=== PATIENT | female | born 1985 | race Asian ===

== ENCOUNTER 2016-06-12 04:35 | Emergency (ER) | payer SELFPAY ==
[~2016-06-12] VITALS: Ht 162.6 cm; Wt 59.0 kg
[2016-06-12 04:45] VITALS: BP 120/76
[2016-06-12 06:21] LABS: Urine Bilirubin Negative (Negative); Urine Blood Negative /uL (Negative); Urine Color Yellow (Yellow); Urine Glucose Normal (Normal); Urine Ketone Negative (Negative); Urine Mucus FEW (None Seen); Urine Nitrite Negative (Negative); Urine RBC 9 /hpf (0 - 4); Urine Squamous Epithelial Cell FEW /hpf (<5); Urine Urobilinogen Normal (Negative); Urine pH 6.5 (5.0-8.0)
== END 2016-06-12 08:04 | disposition home or self-care (01) ==
LOC: ER 04:35 → EDBD 04:35 → ER 08:04
DX: S62.512A Displaced fracture of proximal phalanx of left thumb, initial encounter for closed fracture (principal); V49.60XA Unspecified car occupant injured in collision with unspecified motor vehicles in traffic accident, initial encounter; Y93.89 Activity, other specified; Y92.410 Unspecified street and highway as the place of occurrence of the external cause; Y99.8 Other external cause status
CPT/HCPCS: 29130; 73110; 73140; 81001; 81025